=== PATIENT | female | born 1950 | race Caucasian/White ===

== ENCOUNTER → 2016-12-20 | Day surgery (SDC) | payer OTHER ==
--- NOTE | 2016-12-09 14:56 | PAT Medication Instructions ---
Service Date Dec 09, 2016. Current Home Medication List Atorvastatin (Atorvastatin Calcium), 40 MG PO HS Azelastine Hcl (Astelin Nasal [place]), 2 SPRAYS KENNA BID Canagliflozin (Invokana), 300 MG PO DAILY Cholecalciferol (Vitamin D3), 2,000 INTER.UNIT PO DAILY Cyanocobalamin (Vitamin B12), 1,000 MCG PO DAILY Fluocinonide (Fluocinonide), 1 DOSE TOP UD Fluticasone Propionate (Fluticasone Propionate), 1 SPRAY KENNA BID Furosemide (Furosemide), 20 MG PO DAILY Glimepiride (Glimepiride), 3 MG PO QAM Guaifenesin Ext Rel (Mucinex Ext Rel), 600 MG PO Q12 Lamotrigine (Lamotrigine), 225 MG PO DAILY Levothyroxine Sodium (Synthroid), 200 MCG PO UD Levothyroxine Sodium (Synthroid), 175 MCG PO UD Metformin Hcl (Glucophage), 1,000 MG PO BID Nystatin (Topical) (Nystatin), 1 DOSE TOP UD Pantoprazole (Pantoprazole Sodium), 40 MG PO BID Paroxetine (Paroxetine HCl), 40 MG PO DAILY Sotalol HCl (Sotalol HCl), 40 MG PO QPM Valsartan (Valsartan), 1 TAB PO DAILY Warfarin Sod (Jantoven), 5 MG PO DAILY Medication Instructions For Your Scheduled Surgery - Instructions to be given by [facility]; to bridge with Lovenox: Warfarin Sod (Jantoven), 5 MG PO DAILY - Hold the following medications 48 hours prior to surgery: Metformin Hcl (Glucophage), 1,000 MG PO BID - Hold the following medications 24 hours prior to surgery: Nystatin (Topical) (Nystatin), 1 DOSE TOP UD Fluocinonide (Fluocinonide), 1 DOSE TOP UD - Hold the following medications the morning of surgery: Canagliflozin (Invokana), 300 MG PO DAILY Cholecalciferol (Vitamin D3), 2,000 INTER.UNIT PO DAILY Cyanocobalamin (Vitamin B12), 1,000 MCG PO DAILY Guaifenesin Ext Rel (Mucinex Ext Rel), 600 MG PO Q12 Furosemide (Furosemide), 20 MG PO DAILY Glimepiride (Glimepiride), 3 MG PO QAM Valsartan (Valsartan), 1 TAB PO DAILY - Take the following medications the morning of surgery with a sip of water OTHERWISE NOTHING TO EAT OR DRINK AFTER MIDNIGHT: Azelastine Hcl (Astelin Nasal [place]), 2 SPRAYS KENNA BID Fluticasone Propionate (Fluticasone Propionate), 1 SPRAY KENNA BID Paroxetine (Paroxetine HCl), 40 MG PO DAILY Levothyroxine Sodium (Synthroid) Pantoprazole (Pantoprazole Sodium), 40 MG PO BID - Take the following medications as scheduled the night before surgery: Atorvastatin (Atorvastatin Calcium), 40 MG PO HS Azelastine Hcl (Astelin Nasal [place]), 2 SPRAYS KENNA BID Fluticasone Propionate (Fluticasone Propionate), 1 SPRAY KENNA BID Lamotrigine (Lamotrigine), 225 MG PO DAILY HS Sotalol HCl (Sotalol HCl), 40 MG PO QPM Pantoprazole (Pantoprazole Sodium), 40 MG PO BID If you have any questions please call us at [phone] or [phone] or [phone]
[2016-12-09 15:11] LABS: BASO % 0.3 %; BASO ABS # 0.02 K/uL (0-0.2); COMPLETE YES; HEMATOCRIT 42.9 % (37-47); IG% 0.4 %; LYMPH % 29.5 %; LYMPH ABS # 2.12 K/uL (1.2-3.4); MEAN CELL VOLUME 85.3 fL (80-100); MEAN CORPUSCULAR HEMOGLOBIN 27.4 pg (25-34); MEAN CORPUSCULAR HGB CONC 32.2 g/dl (32-36); MEAN PLATELET VOLUME 10.3 fL (7.4-10.4); MONO % 6.7 %; NEUT % 59.1 %; PLATELET COUNT 260 K/uL (130-400); RED BLOOD COUNT 5.03 M/uL (4.2-5.4); WHITE BLOOD COUNT 7.18 K/uL (4.8-10.8)
[2016-12-09 15:51] LABS: BLOOD UREA NITROGEN 18 mg/dl (7-18); BUN/CREATININE RATIO 21.3 (10-20); CARBON DIOXIDE 27 mmol/L (21-32); CHLORIDE 104 mmol/L (98-107); CREATININE 0.83 mg/dl (0.60-1.20); GLUCOSE 267 mg/dl (70-99); POTASSIUM 3.9 mmol/L (3.5-5.1); SODIUM 142 mmol/L (136-145)
[2016-12-10 08:43] VITALS: BMI 44.0
[~2016-12-20] VITALS: Ht 172.7 cm; Wt 130.0 kg
[~2016-12-20] MED LIST: AMR2 PO; ASPCH81X PO; ASTN NAE; ATROPINE SULFATE 0.1 MG/ML 5ML SYR IV PRN; BTP80 PO; CANA1TAB3 PO; CHOL2000 PO; CYAN100020 PO; DEXAMETHASONE SOD INJ 4 MG/ML VIAL ONE; DVN/160 PO; ENOX40IN SQ; EpHEDrine SULFATE INJ 50 MG/ML AMP IV PRN; FENTANYL CITRATE INJ 50 MCG/1 ML 2 ML VIAL IV PRN; FENTANYL CITRATE INJ 50 MCG/1 ML 2 ML VIAL ONE; FLNIN/ NAE; FLUO0.059 TOP; GUAI1TAB55 PO; HYDROCODONE/ACETAMOPHEN 5/325MG TAB PO PRN; HYDROmorphone INJ 1 MG/ML SYR IV PRN; IBUPROFEN 600 MG TAB PO PRN; KETOROLAC TROMETHAMINE 30 MG/ML VIAL IV. PRN; LACTATED RINGER'S 1000ML 1,000 ML IV SCH; LEVO175T PO; LEVO200T PO; LIDOCAINE HCL 2% 2 ML VIAL (20MG/ML) ONE; LMC25 PO; LPT40 PO; LSX20 PO; METF-384 PO; METOCLOPRAMIDE HCL INJ 5 MG/ML 2 ML VIAL IV PRN; MIDAZOLAM HCL 1 MG/ML 2ML VIAL ONE; MTR600X PO; NYST1POW7 TOP; OLAN-111 PO; ONDANSETRON INJ 2 MG/ML 2 ML VIAL IV PRN; ONDANSETRON INJ 2 MG/ML 2 ML VIAL ONE; OXYC-57 PO; OXYCODONE/ACETAMINOPHEN 5-325 TAB PO PRN; PROMETHAZINE HCL INJ 6.25 MG in SODIUM CHLORIDE 0.9% 50ML 50 ML IV PRN; PROPOFOL IV EMULSION 10 MG/ML 20 ML VIAL IV ONE; PRT/40 PO; PRX/40 PO; SODIUM CHLORIDE 0.9% 1000ML 1,000 ML IV SCH; VALS-59 PO; WARF5TAB7 PO
[2016-12-20 09:03] VITALS: BP 176/81; PULSE 71; TEMP 37; O2SAT 96; Ht 172.7 cm; Wt 130.0 kg
--- NOTE | 2016-12-20 09:35 | History & Physical Bridge Note ---
H&P Re-Evaluation Bridge Note: I have examined the patient, reviewed the History & Physical and in the interval since the performance of the History & Physical I have noted the following changes of clinical significance: No changes noted
[2016-12-20 10:18] LABS: INR 1.1 (0.9-1.1); PROTHROMBIN TIME (PATIENT) 11.3 SECONDS (9.0-12.0)
--- NOTE | 2016-12-20 11:30 | Discharge Instructions ---
Discharge Instructions Admission Reason for Admission: Postmenopausal Bleeding Discharge Discharge Diagnosis / Problem: post op D& C Hysteroscopy Discharge Goals Goal(s): Routine recovery after surgery Activity Recommendations Activity Limitations: as noted below Lifting Limitations: gradually increase as tolerated ACTIVITY RECOMMENDATIONS: * Avoid tampons, douching, hot tubs, pools, and intercourse until bleeding has stopped. * May shower as usual. * No strenuous activity for 24-48 hours. After 24-48 hours, you can do anything you feel like doing (driving and sports are okay). RETURN TO SCHOOL/WORK: * You may return to school or work after 24 hours unless specified by your physician. DIET: * Resume previous diet. MEDICATIONS: Resume previous medications unless instructed otherwise by your surgeon. Ibuprofen 200mg 2-3 tablets every 4-6 hours as needed --OR-- Aleve 2 tablets every 8-12 hours as needed for post-operative discomfort Medications are over the counter. Tylenol may be used if above medications are contraindicated or not preferred. Medication should be taken with food or milk. do not take on an empty stomach. SPECIAL CARE INSTRUCTIONS: * Check temperature twice daily for one week. Report any elevation over 101 degrees. * Call office if you experience increased pelvic pain or discomfort not relieved by pain medicine, if you have foul smelling vaginal discharge, if you have bleeding that is heavier than a normal menstrual flow. If you are changing a maxi pad every 1- 2 hours, this is too heavy. vaginal spotting is normal for 1-2 weeks. FOLLOW UP VISIT: Call your doctor's office for a post-operative visit. . Current Hospital Diet Patient's current hospital diet: Discharge Diet Recommended Diet: Regular Diet Procedures Procedures Performed: Exam Under Anesthesia, Hysteroscopy Dilation Currettage, Endometerial Polyp Resection with use of Myosure Pending Studies Studies pending at discharge: no Medical Emergencies . Who to Call and When: Medical Emergencies: If at any time you feel your situation is an emergency, please call 911 immediately. . Non-Emergent Contact Non-Emergency issues call your: Specialist . . "Provider Documentation" section prepared by Gordon Cuenca. VTE Core Measure Inpt VTE Proph given/why not?: Treatment not indicated
--- NOTE | 2016-12-20 11:31 | [facility] Post Operative Brief Note ---
Immediate Operative Summary Operative Date Dec 20, 2016. Pre-Operative Diagnosis Post Menopausal Bleeding Post-Operative Diagnosis Endometerial Polyp Procedure(s) Performed Exam Under Anesthesia, Hysteroscopy Dilation Currettage, Endometerial Polyp Resection with use of Myosure Surgeon Headwaitress Surgeon(s) None Estimated Blood Loss 20ml Findings dictated Specimens A. Endometrial Polyp Resection B. Endometrial Currettings. Drains none Anesthesia general Complication(s) None Disposition Recovery Room / PACU
--- NOTE | 2016-12-20 12:10 | OPERATIVE REPORT ---
DATE OF OPERATION: 12/20/2016 INDICATIONS FOR SURGERY: This is a 66-year-old with postmenopausal bleeding. An attempt to do an endometrial biopsy in the office was unsuccessful because of cervical stenosis. Ultrasound showed endometrial polyp. PREOPERATIVE DIAGNOSES: 1. Postmenopausal bleeding. 2. Cervical stenosis. 3. Endometrial polyp seen on pelvic sonogram. POSTOPERATIVE DIAGNOSIS: Same. PROCEDURE: 1. Examination under anesthesia. 2. Hysteroscopy. 3. Dilation and curettage. 4. Endometrial polyp resection via MyoSure. SURGEON: Dr. Cuenca. INDUSTRIAL RELATIONS REPRESENTATIVE: None. ANESTHESIA: General. FINDINGS: A normal atrophic vaginal vulva. Cervix appeared stenotic. Findings of the uterus showed endometrial polyp with anterior fibroid. Both ostia were seen. Rest of the endometrium appeared otherwise atrophic. ESTIMATED BLOOD LOSS: 20 mL. IV FLUIDS: 950 mL. URINE OUTPUT: 100 mL clear urine at the beginning of the procedure. HYSTEROSCOPY FLUID LOSS: 45 mL. COMPLICATIONS: None. DRAINS: None. PATHOLOGY: 1. Endometrial polyp resection via MyoSure. 2. Endometrial curettings. DISPOSITION: Stable in recovery room. PROCEDURE: The patient was taken to the operating room where timeout was called. She was prepped and draped in normal sterile fashion in the dorsal lithotomy position. The bladder was catheterized and 100 mL of clear urine was obtained. A weighted speculum was placed in the vagina. A single tooth tenaculum was placed on the cervix. Cervix was dilated to a size 8. MyoSure hysteroscope was placed into the uterine cavity and the findings of the uterus are as dictated above. The MyoSure was passed through the outflow tract and resection of endometrial polyp performed without any difficulty. There was good hemostasis at the end of the procedure. The MyoSure device was removed from the uterus. The cervix dilated to a size 10 and size 2 curette introduced in the uterine cavity and curettage performed in all 4 quadrants until a gritty texture was obtained. The specimens were sent to pathology for pathological analysis. All instruments were removed from the vagina including sponges and retractors and accounted for x2. There is good hemostasis and the patient sent to recovery in stable condition. I attest to the content of the Intraoperative Record and any orders documented therein. Any exceptions are noted below. CLAUDE
--- NOTE | 2016-12-20 12:28 | Anesthesiology Progress Note ---
Anesthesia Post Op Note Date & Time Dec 20, 2016 at 12:28 Vital Signs Pain Intensity: 0 Vital Signs Past 12 Hours Date Time Temp Pulse Resp B/P Pulse Ox O2 Delivery O2 Flow Rate FiO2 12/20/16 12:23 77 15 12/20/16 12:23 79 15 94 12/20/16 12:21 140/70 12/20/16 12:21 36.4 12/20/16 12:18 77 20 12/20/16 12:18 77 20 96 12/20/16 12:15 156/71 12/20/16 12:13 72 16 96 12/20/16 12:13 74 16 12/20/16 12:10 139/70 12/20/16 12:08 69 14 12/20/16 12:08 70 14 97 12/20/16 12:07 73 23 12/20/16 12:07 75 23 96 12/20/16 12:06 146/69 12/20/16 12:02 75 16 12/20/16 12:02 76 16 93 12/20/16 12:00 147/71 12/20/16 11:57 72 14 88 12/20/16 11:57 74 14 12/20/16 11:56 74 21 137/64 93 12/20/16 11:56 75 21 12/20/16 11:51 80 16 12/20/16 11:51 80 16 96 12/20/16 11:50 166/83 12/20/16 11:46 73 16 12/20/16 11:46 73 16 95 12/20/16 11:45 150/90 12/20/16 11:41 72 16 98 12/20/16 11:41 72 16 12/20/16 11:40 72 13 148/70 98 12/20/16 11:40 72 13 12/20/16 11:35 73 15 176/84 99 12/20/16 11:35 74 15 12/20/16 11:30 76 12 12/20/16 11:30 77 12 169/94 99 12/20/16 11:25 80 14 193/91 99 12/20/16 11:25 36.6 87 16 169/94 98 Mask 10 12/20/16 11:25 80 14 12/20/16 09:03 37 71 20 176/81 96 Room Air Notes Mental Status: alert / awake / arousable, participated in evaluation Pt Amnestic to Procedure: Yes Nausea / Vomiting: adequately controlled Pain: adequately controlled Airway Patency, RR, SpO2: stable & adequate BP & HR: stable & adequate Hydration State: stable & adequate Anesthetic Complications: no major complications apparent
[2016-12-20 12:35] VITALS: BP 160/66; PULSE 79; TEMP 37; O2SAT 97
[2016-12-20 13:05] VITALS: BP 150/65; PULSE 84; O2SAT 98
[2016-12-20 13:35] VITALS: BP 137/77; PULSE 89; TEMP 36.6; O2SAT 97
== END | disposition home or self-care (01) ==
LOC: C.ACU 08:52
PROVIDERS: ATTEND Obstetrics & Gynecology
DX: C54.1 Malignant neoplasm of endometrium (principal); N95.0 Postmenopausal bleeding; N88.2 Stricture and stenosis of cervix uteri; F32.9 Major depressive disorder, single episode, unspecified; E11.9 Type 2 diabetes mellitus without complications; M79.7 Fibromyalgia; I10 Essential (primary) hypertension; E78.5 Hyperlipidemia, unspecified; E03.9 Hypothyroidism, unspecified; Z86.73 Personal history of transient ischemic attack (TIA), and cerebral infarction without residual deficits

== ENCOUNTER 2017-03-25 07:52 | Day surgery (SDC) | payer OTHER ==
[2017-03-24 18:32] VITALS: BMI 45.0
[~2017-03-25] VITALS: Ht 167.6 cm; Wt 125.6 kg
[~2017-03-25 07:52] MED LIST changes: -ASPCH81X PO; -ATROPINE SULFATE 0.1 MG/ML 5ML SYR IV PRN; -DEXAMETHASONE SOD INJ 4 MG/ML VIAL ONE; -DVN/160 PO; -ENOX40IN SQ; -EpHEDrine SULFATE INJ 50 MG/ML AMP IV PRN; -FENTANYL CITRATE INJ 50 MCG/1 ML 2 ML VIAL IV PRN; -FENTANYL CITRATE INJ 50 MCG/1 ML 2 ML VIAL ONE; -HYDROCODONE/ACETAMOPHEN 5/325MG TAB PO PRN; -HYDROmorphone INJ 1 MG/ML SYR IV PRN; -IBUPROFEN 600 MG TAB PO PRN; -KETOROLAC TROMETHAMINE 30 MG/ML VIAL IV. PRN; +LACTATED RINGER'S 1000ML 500 ML IV ONE; -LIDOCAINE HCL 2% 2 ML VIAL (20MG/ML) ONE; -METOCLOPRAMIDE HCL INJ 5 MG/ML 2 ML VIAL IV PRN; -MIDAZOLAM HCL 1 MG/ML 2ML VIAL ONE; -NYST1POW7 TOP; -ONDANSETRON INJ 2 MG/ML 2 ML VIAL IV PRN; -ONDANSETRON INJ 2 MG/ML 2 ML VIAL ONE; -OXYC-57 PO; -OXYCODONE/ACETAMINOPHEN 5-325 TAB PO PRN; +PANT40TA2 PO; -PROMETHAZINE HCL INJ 6.25 MG in SODIUM CHLORIDE 0.9% 50ML 50 ML IV PRN; -PROPOFOL IV EMULSION 10 MG/ML 20 ML VIAL IV ONE; -PRT/40 PO; -SODIUM CHLORIDE 0.9% 1000ML 1,000 ML IV SCH
[2017-03-25 08:16] LABS: BASO % 0.4 %; BASO ABS # 0.04 K/uL (0-0.2); HEMATOCRIT 40.5 % (37-47); IG% 0.7 %; LYMPH % 26.2 %; LYMPH ABS # 2.46 K/uL (1.2-3.4); MEAN CELL VOLUME 86.4 fL (80-100); MEAN CORPUSCULAR HEMOGLOBIN 27.9 pg (25-34); MEAN PLATELET VOLUME 9.9 fL (7.4-10.4); MONO % 5.8 %; NEUT % 62.9 %; PLATELET COUNT 302 K/uL (130-400); RED BLOOD COUNT 4.69 M/uL (4.2-5.4); WHITE BLOOD COUNT 9.39 K/uL (4.8-10.8)
[2017-03-25] MEDS ORDERED: ASPCH81X PO (08:16)
[2017-03-25] MEDS ORDERED: DVN/160 PO (08:17)
[2017-03-25 08:18] VITALS: BP 142/65; PULSE 72; TEMP 37.1; O2SAT 96; Ht 167.6 cm; Wt 125.6 kg
[2017-03-25 08:24] LABS: INR 1.1 (0.9-1.1); PROTHROMBIN TIME (PATIENT) 11.5 SECONDS (9.0-12.0)
[2017-03-25 08:26] LABS: COMPLETE YES; MEAN CORPUSCULAR HGB CONC 32.3 g/dl (32-36)
[2017-03-25] MEDS ORDERED: CEFAZOLIN IV 3,000 MG/65 ML D5W IV ONE (08:37)
[2017-03-25] MEDS ORDERED: ATROPINE SULFATE 0.1 MG/ML 5ML SYR IV PRN (09:30)
[2017-03-25] MEDS ORDERED: ONDANSETRON INJ 2 MG/ML 2 ML VIAL IV PRN ×2 (09:30→12:15)
[2017-03-25] MEDS ORDERED: EpHEDrine SULFATE INJ 50 MG/ML AMP IV PRN (09:30)
[2017-03-25] MEDS ORDERED: FENTANYL CITRATE INJ 50 MCG/1 ML 2 ML VIAL IV PRN (09:30)
[2017-03-25] MEDS ORDERED: CEFAZOLIN 3000 MG/65 ML D5W IV STA (09:34)
[2017-03-25] MEDS ORDERED: KETAMINE HCL INJ 50 MG/ML 10 ML VIAL ONE (10:18)
[2017-03-25] MEDS ORDERED: MIDAZOLAM HCL 1 MG/ML 2ML VIAL ONE ×2 (10:18→11:06)
[2017-03-25] MEDS ORDERED: CEFAZOLIN IV 3,000 MG/65 ML D5W IV STA (10:31)
[2017-03-25] MEDS ORDERED: LIDOCAINE HCL 1% 20 ML VIAL ONE (10:51)
[2017-03-25] MEDS ORDERED: BACITRACIN OINT 15 GM TUBE ONE (10:52)
[2017-03-25] MEDS ORDERED: BUPIVACAINE 0.5 % 5 MG/1 ML MPF 30ML VIAL ONE (10:53)
[2017-03-25] MEDS ORDERED: HEPARIN SOD (PORCINE) 1000 UNIT/ML 10 ML VIAL ONE (10:53)
[2017-03-25] MEDS ORDERED: FENTANYL CITRATE INJ 50 MCG/1 ML 2 ML VIAL ONE (11:28)
[2017-03-25] MEDS ORDERED: PROPOFOL IV EMULSION 10 MG/ML 20 ML VIAL IV ONE (11:36)
[2017-03-25] MEDS ORDERED: CONRAY 60% 50 ML VIAL ONE (11:36)
[2017-03-25] MEDS ORDERED: ONDANSETRON INJ 2 MG/ML 2 ML VIAL ONE (11:45)
[2017-03-25] MEDS ORDERED: LIDOCAINE HCL 2% 2 ML VIAL (20MG/ML) ONE (12:02)
--- NOTE | 2017-03-25 12:11 | [facility] Post Operative Brief Note ---
Immediate Operative Summary Operative Date Mar 25, 2017. Pre-Operative Diagnosis Need for Intravenous Access Post-Operative Diagnosis Need for Intravenous Access Procedure(s) Performed Insertion of A-port in Right Subclavian Vein Surgeon Dr. Armin Mckeon Vending Technician Surgeon(s) Suzanne Chirinos PA-C Estimated Blood Loss 10ml Findings IV contrast study , possible occlusion SVC, patent Right Subclavain vein Specimens No Specimen Drains none Anesthesia sedation + local Complication(s) None Disposition Recovery Room / PACU
[2017-03-25] MEDS ORDERED: MoRPHine SULFATE 2 MG/ML CARP IV PRN ×2 (12:15)
[2017-03-25] MEDS ORDERED: OXYCODONE/ACETAMINOPHEN 5-325 TAB PO PRN (12:15)
[2017-03-25] MEDS ORDERED: OXYC-57 PO (12:16)
--- NOTE | 2017-03-25 12:20 | Discharge Instructions ---
Discharge Instructions Date of Service Mar 25, 2017. Admission Reason for Admission: Uterine Cancer Discharge Discharge Diagnosis / Problem: s/p aport insertion Discharge Goals Goal(s): Decrease discomfort Activity Recommendations Activity Limitations: as noted below No strenuous activity for 1 week No heavy lifting with right arm for 1 week Do not lift right arm above head for 1 week NO driving while taking narcotic pain medication . Instructions / Follow-Up Instructions / Follow-Up You may shower in 3 days, sponge bath and wash hair in meantime Remove dressing in 3 days Keep steri strips on for 7 days unless your port is needed to be used, if they fall off before 7 days that is okay Follow-up with Dr. Mckeon in 1 week, please call office at [phone] to make an appointment if you do not already have one Current Hospital Diet Patient's current hospital diet: Discharge Diet Recommended Diet: Regular Diet Procedures Procedures Performed: Insertion of A-port in Right Subclavian Vein Pending Studies Studies pending at discharge: no Medical Emergencies . Who to Call and When: Medical Emergencies: If at any time you feel your situation is an emergency, please call 911 immediately. . Non-Emergent Contact Non-Emergency issues call your: Primary Care Provider, Surgeon Call Non-Emergent contact if: you have a fever, temperature is above 101.5, your pain is not controlled, your pain is worsening, wound has increased drainage, wound has increased redness, wound has increased pain . "Provider Documentation" section prepared by Suzanne Dowd. . VTE Core Measure Inpt VTE Proph given/why not?: SCD's [place] Drug Monitoring Program Search Results: patient reviewed within database, no issues identified
--- NOTE | 2017-03-25 12:37 | DIAGNOSTIC IMAGING REPORT ---
CHEST ONE VIEW PORTABLE CLINICAL HISTORY: s/p right subclavian a port catheter tube position COMPARISON STUDY: 03/21/2014 FINDINGS: Central catheter place in superior vena cava. No evidence pneumothorax. Lungs remain clear. IMPRESSION: Central catheter placed in the superior vena cava. No evidence pneumothorax. Electronically signed by: Derian Whyte M.D. 03/25/2017 12:36 PM Dictated Date/Time: 03/25/2017 12:35 PM
[2017-03-25 12:45] VITALS: BP 137/68; PULSE 72; TEMP 36.7; O2SAT 95
[2017-03-25 13:15] VITALS: BP 113/54; PULSE 70; TEMP 36.7; O2SAT 93
--- NOTE | 2017-03-25 13:25 | Anesthesiology Progress Note ---
Anesthesia Post Op Note Date & Time Mar 25, 2017 at 13:25 Vital Signs Pain Intensity: 0 Vital Signs Past 12 Hours Date Time Temp Pulse Resp B/P (MAP) Pulse Ox O2 Delivery O2 Flow Rate FiO2 03/25/17 12:45 36.7 72 20 137/68 95 Room Air 03/25/17 12:30 36.4 73 16 127/65 93 Room Air 03/25/17 12:20 70 12 124/65 99 Mask 8 03/25/17 12:14 36.2 72 16 132/71 95 Mask 8 03/25/17 08:18 37.1 72 18 142/65 (90) 96 Room Air Notes Mental Status: alert / awake / arousable, participated in evaluation Pt Amnestic to Procedure: Yes Nausea / Vomiting: adequately controlled Pain: adequately controlled Airway Patency, RR, SpO2: stable & adequate BP & HR: stable & adequate Hydration State: stable & adequate Anesthetic Complications: no major complications apparent
--- NOTE | 2017-03-25 15:44 | OPERATIVE REPORT ---
DATE OF OPERATION: 03/25/2017 PREOPERATIVE DIAGNOSES: Need [id number] insertion for chemo. POSTOPERATIVE DIAGNOSIS: Same. PROCEDURE: [id number] insertion of right subclavian vein. SURGEON: Dr. Armin Mckeon. VEGETABLE PREPARER: Suzanne Dowd PA-C. ANESTHESIA: Conscious sedation plus local. ESTIMATED BLOOD LOSS: About 10 mL. IV FLUIDS: 1500 mL. FINDINGS: Intravenous contrast study showing possible occlusion of the SVC and patent right subclavian vein to the SVC. COMPLICATIONS: None. INDICATIONS FOR THE PROCEDURE: This is a 66-year-old female who will require A-port insertion for chemo treatment of cancer. I did talk to the patient about the benefit and risk, alternate procedure. I indicated the risks may include but not limited such as bleeding, infection, injury to vessel or nerves, blood clot cause DVT, pulmonary emboli, injury to bowel, may need chest tube, dysfunction catheter even . The patient understands. She signed informed consent and she agreed to proceed with procedure. I answered all questions. OPERATION AND FINDINGS: DETAILS OF PROCEDURE: We brought the patient to the OR, put the patient in the supine position. The patient received SCD on bilateral legs to prevent DVT. Also, the patient received 2 grams Ancef IV for prophylactic antibiotic. The patient received conscious sedation by anesthesiology. Then I used ultrasound per marked right inguinal trocar vein. Then the patient right side neck and upper chest was prepped and draped in the routine sterile fashion. After a timeout, I used needle to puncture the right internal jugular vein and ultrasound got easy blood return; however, we tried to pass the wire into the SVC, we could not, the wire go to right subclavian vein so we tried a couple times. At this moment we decided to shoot some of the contrast dye and contrast dye only go up to the right internal jugular and not go to SVC and possible occluded SVC between the right internal jugular vein. At this moment, I decided I used the right subclavian vein, so I used the 16 gauge needle puncture the right subclavian vein without difficulty and passed to the wire and used the x-ray and found the wire go to the right atrial, then we injected the local around the right upper chest, made about a 2 cm incision create port pouch and then I passed the dilator catheter through the wire without difficulty and then I passed the [id number] through the dilator sheath, removed sheath and then we used fluoro to locate the catheter tip located junction SVC to atrial, good location, and then the catheter connected to the port. Once connected to port we used 2-0 Prolene to fix the port on the chest wall at three points and then we closed the subcutaneous layer by using 2-0 Vicryl continuous running, closed skin by using 4-0 Vicryl. Then I used needle to puncture the port and easy blood returned and injection heparin saline into the port. The patient positioned Trendelenburg during the procedure. Otherwise, the patient tolerated the procedure well. All instrument, needle and sponge count correct x2 at the end of case. The patient transferred to recovery room in stable condition. After the procedure, I did talk to the patient and her about the OR finding and procedure we did, they understand. I attest to the content of the Intraoperative Record and any orders documented therein. Any exceptions are noted below. CLAUDE
== END 2017-03-25 13:30 | disposition home or self-care (01) ==
LOC: C.ACU 07:52
PROVIDERS: ATTEND Surgery
DX: C54.1 Malignant neoplasm of endometrium (principal); I10 Essential (primary) hypertension; I48.91 Unspecified atrial fibrillation; E03.9 Hypothyroidism, unspecified; E11.9 Type 2 diabetes mellitus without complications; E78.5 Hyperlipidemia, unspecified; F41.9 Anxiety disorder, unspecified; F32.9 Major depressive disorder, single episode, unspecified; G47.33 Obstructive sleep apnea (adult) (pediatric); K21.9 Gastro-esophageal reflux disease without esophagitis; E66.01 Morbid (severe) obesity due to excess calories; Z68.41 Body mass index [BMI] 40.0-44.9, adult; Z79.01 Long term (current) use of anticoagulants; Z98.49 Cataract extraction status, unspecified eye; Z90.710 Acquired absence of both cervix and uterus; Z90.89 Acquired absence of other organs; Z86.73 Personal history of transient ischemic attack (TIA), and cerebral infarction without residual deficits; Z98.890 Other specified postprocedural states

== ENCOUNTER 2018-02-27 13:12 | Observation (INO) | payer OTHER ==
[~2018-02-27] VITALS: Ht 171.4 cm; Wt 134.8 kg
[~2018-02-27 13:12] MED LIST changes: +ASPCH81X PO; +DVN/160 PO; -LACTATED RINGER'S 1000ML 1,000 ML IV SCH; -LACTATED RINGER'S 1000ML 500 ML IV ONE; -VALS-59 PO
[2018-02-27 14:41] VITALS: BP 163/79; PULSE 77; TEMP 37; O2SAT 94; Ht 171.4 cm; Wt 134.8 kg
[2018-02-27 15:16] VITALS: BP 145/83; PULSE 65; TEMP 37.4; O2SAT 91
[2018-02-27] MEDS ORDERED: ENOXAPARIN 40 MG/0.4 ML SYR SQ SCH (16:15)
[2018-02-27] MEDS ORDERED: IBUPROFEN 600 MG TAB PO PRN (16:15)
[2018-02-27] MEDS ORDERED: KETOROLAC TROMETHAMINE 30 MG/ML VIAL IV STA (16:17)
[2018-02-27] MEDS ORDERED: IV FLUIDS COMPLETED PRN (16:30)
[2018-02-27] MEDS ORDERED: KETOROLAC TROMETHAMINE 15 MG/ML VIAL IV PRN (16:30)
--- NOTE | 2018-02-27 16:40 | History and Physical ---
History & Physical Date & Time of Service: February 27, 2018 at 16:27 Chief Complaint: Cellulitis-Facial Primary Care Physician: Kaylah Phillips M.D. History of Present Illness Source: patient She is a 67-year-old white female with significant past medical history as mentioned below apparently was seen in the clinic on Friday last with them left fascial redness. She was given Valtrex with the suspicion of shingles but the condition did not improve. Her redness and swelling involved the right side of the face as well and she was seen in the clinic again with a diagnosis of cellulitis/splitting erysipelas and ascending for continued treatment. She complains to have pain bilaterally face and also at the occipital area of the head. She has a fever up to 100F as an outpatient. She denies of any other symptoms. She received 2 g of ceftriaxone IM at the clinic and her redness and swelling have been improving. Past Medical/Surgical History Medical Problems: (1) AF (atrial fibrillation) (2) Appendectomy (3) Atrial ablation (4) Bronchitis (5) section (6) Diabetes mellitus (7) Diffuse cellulitis of face (8) DM (diabetes mellitus), type 2, uncontrolled (9) Fibromyalgia (10) Heart disease (11) HTN (hypertension) (12) Lumpectomy of breast (13) New onset atrial fibrillation (14) New onset atrial fibrillation (15) Rash (16) Sleep apnea (17) Tonsillectomy Social History Smoking Status: Never Smoker Smokeless Tobacco Use: No Drug Use: none Marital Status: Occupational Status: unemployed Allergies Coded Allergies: Pentazocine (Verified Allergy, Severe, cardiac arrest, 03/25/17) Flecainide (Verified Allergy, Unknown, severe hypotension, 03/25/17) Nitroglycerin (Verified Allergy, Unknown, cardiac arrest, 03/25/17) Pregabalin (Verified Allergy, Unknown, swelling face,feet,and hands, ) Aspartame (Verified Adverse Reaction, Intermediate, BAD HEADACHES, 03/25/17) Home Medications Scheduled Aspirin (Aspirin Chewable), 81 MG PO DAILY Atorvastatin (Lipitor), 40 MG PO HS Azelastine Hcl (Astelin Nasal [place]), 2 SPRAYS KENNA BID Cyanocobalamin (Vitamin B12), 1,000 MCG PO DAILY Fluocinonide (Fluocinonide), 1 DOSE TOP UD Fluticasone Propionate (Fluticasone Propionate), 1 SPRAY KENNA BID Furosemide (Furosemide), 20 MG PO DAILY Guaifenesin Ext Rel (Mucinex Ext Rel), 600 MG PO Q12 Insulin Aspart (Novolog), 11 UNITS SQ DAILY Insulin Aspart (Novolog), 14 UNITS SQ PM Insulin Glargine (Lantus), 45 UNITS SC HS Lamotrigine (Lamotrigine), 250 MG PO HS Levothyroxine Sodium (Synthroid), 200 MCG PO UD Levothyroxine Sodium (Synthroid), 175 MCG PO UD Metformin Hcl (Glucophage), 850 MG PO TID Olanzapine (Zyprexa), 5 MG PO HS Pantoprazole (Pantoprazole Sodium), 40 MG PO BID Paroxetine (Paroxetine HCl), 50 MG PO DAILY Sotalol HCl (Sotalol HCl), 40 MG PO BID Valsartan (Diovan), 1 TAB PO DAILY Warfarin Sod (Jantoven), 7.5 MG PO DAILY Review of Systems Constitutional: + fever, + chills Eyes: + redness (lEFT SIDE) Musculoskeletal: + muscle pain (HAS fIBROMYALGIA) Integumentary: + rash (BILATERALLY OVER FACE WITH REDNESS) Physical Exam Vital Signs Date Time Temp Pulse Resp B/P (MAP) Pulse Ox O2 Delivery O2 Flow Rate FiO2 02/27/18 15:16 37.4 65 16 145/83 (103) 91 Room Air 02/27/18 14:41 37.0 77 18 163/79 94 Room Air General Appearance: + mild distress (From facial pain) Head: normocephalic Eyes: + pertinent finding (Minimal Left scleral redness with minimal drainage) ENT: normal ENT inspection Neck: supple, no adenopathy Respiratory/Chest: chest non-tender, lungs clear, normal breath sounds Cardiovascular: regular rate, rhythm, no edema Abdomen/GI: normal bowel sounds, non tender, soft Back: normal inspection Extremities/Musculoskelatal: normal inspection, no pedal edema (May be trace) Neurologic/Psych: no motor/sensory deficits Skin: normal color Lymphatic: no adenopathy Diagnostics Laboratory Results Results Past 24 Hours Test 02/27/18 16:15 Range/Units Diagnostic Radiology CBC,COMP.Mag -pending Impression Assessment and Plan SPREADING CELLULITIS OF FACE Started one left side and then involve the right side as well over the upper part Received 2 g of ceftriaxone in the clinic and the condition has been improving We will continue with IV ceftriaxone for now Transition to oral Keflex Likely to go home tomorrow Diabetes type 2 on Insulin We will continue Insulin and hold metformin Sliding scale Insulin coverage while in the hospital FIBROMYALGIA Continue current antidepressant medication Pain medications with IV Toradol ATRIAL FIBRILLATION Has been on Coumadin Rate is controlled without any symptoms Continue current medications HYPERTENSION BP is controlled ,continue current medications DVT prophylaxis Continue Coumadin Monitor INR CODE STATUS; full In my clinical assessment the beneficially meets criteria as per CMS for 2 midnight stay in the hospital Advanced Directives Existing Living Will: No Existing Power of Senior Account Manager: No Resuscitation Status VTE Prophylaxis Will order VTE Prophylaxis: Yes
[2018-02-27 16:47] LABS: MEAN CELL VOLUME 87.1 fL (80-100); MEAN CORPUSCULAR HGB CONC 33.3 g/dl (32-36); MEAN PLATELET VOLUME 9.3 fL (7.4-10.4); PLATELET COUNT 139 K/uL (130-400); RED CELL DISTRIBUTION WIDTH CV 16.2 % (11.5-14.5); RED CELL DISTRIBUTION WIDTH SD 51.4 fL (36.4-46.3)
[2018-02-27] MEDS ORDERED: KETOROLAC TROMETHAMINE 30 MG/ML VIAL ONE (17:01)
[2018-02-27 17:12] LABS: ALBUMIN 3.6 gm/dl (3.4-5.0); CALCIUM 8.7 mg/dl (8.5-10.1); CREATININE 0.82 mg/dl (0.60-1.20)
[2018-02-27] MEDS ORDERED: NVLG SQ ×2 (17:42)
[2018-02-27] MEDS ORDERED: INSDGI SC (17:42)
[2018-02-27] MEDS ORDERED: NURSING VERBAL MED ORDER ONE (18:45)
[2018-02-27] MEDS: CEFTRIAXONE SOD INJ 2,000 MG in DEXTROSE 5% 50ML 50 ML IV SCH (19:03)
[2018-02-27 19:22] LABS: INR 3.1 (0.9-1.1)
[2018-02-27] MEDS ORDERED: SOTALOL HCL 80 MG TAB PO SCH (21:00)
[2018-02-27] MEDS: FLUTICASONE PROPIONATE NA SPR 16 GM BTL NAE SCH (21:02)
[2018-02-27] MEDS: ATORVASTATIN 40 MG TAB PO SCH (21:03)
[2018-02-27] MEDS: PANTOprazole SOD 40 MG TAB PO SCH (21:04)
[2018-02-27] MEDS: GUAIFENESIN 600 MG TABCR PO SCH (21:04)
[2018-02-27] MEDS: OLANZAPINE 5 MG TAB PO SCH (21:05)
[2018-02-27] MEDS ORDERED: GLUCOSE 40% GEL 15 GM TUBE PO PRN (21:30)
[2018-02-27] MEDS ORDERED: CARBOHYDRATES FOR HYPOGLYCEMIA PO PRN (21:30)
[2018-02-27] MEDS ORDERED: GLUCOSE 10 TABS/TUBE PO PRN (21:30)
[2018-02-27] MEDS ORDERED: DEXTROSE 50% 50 ML SYR IV PRN (21:30)
[2018-02-27] MEDS ORDERED: GLUCAGON FOR INJ 1 MG VIAL IM PRN (21:30)
[2018-02-27] MEDS: INSULIN GLARGINE SOLOSTAR 100 UNITS/ML 3 ML PEN SC SCH (21:59)
[2018-02-27 22:52] VITALS: BP 139/67; PULSE 62; TEMP 36.9; O2SAT 93
[2018-02-28] MEDS: LEVOTHYROXINE 200 MCG TAB PO SCH (05:39)
[2018-02-28 06:44] LABS: INR 3.2 (0.9-1.1)
[2018-02-28 07:32] VITALS: BP 134/69; PULSE 54; TEMP 36.6; O2SAT 96
[2018-02-28] MEDS ORDERED: GLIMEPIRIDE 2 MG TAB PO SCH (08:00)
[2018-02-28] MEDS: GUAIFENESIN 600 MG TABCR PO SCH ×3 (09:00→21:00)
[2018-02-28] MEDS: CHOLECALCIFEROL 1000 INTER.UNIT TAB PO SCH (09:00)
[2018-02-28] MEDS: FLUTICASONE PROPIONATE NA SPR 16 GM BTL NAE SCH ×2 (09:58→21:26)
[2018-02-28] MEDS: PAROXETINE 20 MG TAB PO SCH (09:59)
[2018-02-28] MEDS: VALSARTAN 80 MG TAB PO SCH (09:59)
[2018-02-28] MEDS: CYANOCOBALAMIN 500 MCG TAB (VIT B-12) PO SCH (10:00)
[2018-02-28] MEDS: ASPIRIN 81 MG CHEW PO SCH (10:00)
[2018-02-28] MEDS: FUROSEMIDE 20 MG TAB PO SCH (10:00)
[2018-02-28] MEDS: PANTOprazole SOD 40 MG TAB PO SCH ×2 (10:50→21:27)
[2018-02-28] MEDS: INSULIN ASPART 100 UNITS/ML 3 ML PEN SQ SCH ×2 (10:53→17:51)
--- NOTE | 2018-02-28 12:06 | Progress Note ---
Internal Med Progress Note Date of Service: February 28, 2018. Provider Documentation: SUBJECTIVE: Seen and examined at bedside Still has swelling, redness of Face Also reports itching Denies chest pain, SOB, dizziness, nausea, dysphagia No other complaints OBJECTIVE: Vital Signs-as noted below Physical Exam: General Appearance:Obese, no apparent distress Head: normocephalic, Atraumatic, Facial erythema, swelling Eyes: normal inspection, EOMI, PERRL Neck: supple, Trachea midline Respiratory/Chest: Normal breath sounds, CTA Cardiovascular: S1, S2, No murmur Abdomen/GI:Soft, Non tender, Bowel sounds present Extremities/Musculoskelatal:normal inspection, no edema Neurologic/Psych:AAOX3, grossly no focal neurological deficits Skin: normal color, warm Lab data as noted below. ASSESSMENT & PLAN: Facial Cellulitis: Continue IV ceftriaxone Day # 2 Plan to transition to oral Keflex upon DC DM II: Hold Oral meds Continue ISS, Basal Insulin Monitor BGs A1C:7.0 Fibromyalgia: Continue current meds Chronic Atrial Fibrillation: Continue Sotalol Hold Coumadin today Monitor INR:3.2 HTN: Stable continue home meds monitor ADI: Continue CPAP DVT Px: Resume Continue as able INR therapeutic Code Status: Full Code Disposition: Expect to discharge home when stable Vital Signs: Date Time Temp Pulse Resp B/P (MAP) Pulse Ox O2 Delivery O2 Flow Rate FiO2 02/28/18 10:00 Room Air 02/28/18 07:32 36.6 54 16 134/69 (90) 96 Room Air 02/27/18 22:52 36.9 62 20 139/67 (91) 93 Room Air 02/27/18 19:43 Room Air 02/27/18 15:16 37.4 65 16 145/83 (103) 91 Room Air 02/27/18 14:41 37.0 77 18 163/79 94 Room Air Lab Results: Results Past 24 Hours Test 02/27/18 16:28 02/27/18 17:02 02/27/18 18:37 02/27/18 20:47 Range/Units White Blood Count 7.40 4.8-10.8 K/uL Red Blood Count 3.79 4.2-5.4 M/uL Hemoglobin 11.0 12.0-16.0 g/dL Hematocrit 33.0 37-47 % Mean Corpuscular Volume 87.1 80-100 fL Mean Corpuscular Hemoglobin 29.0 25-34 pg Mean Corpuscular Hemoglobin Concent 33.3 32-36 g/dl RDW Standard Deviation 51.4 36.4-46.3 fL RDW Coefficient of Variation 16.2 11.5-14.5 % Platelet Count 139 130-400 K/uL Mean Platelet Volume 9.3 7.4-10.4 fL Sodium Level 137 136-145 mmol/L Potassium Level 4.0 3.5-5.1 mmol/L Chloride Level 104 98-107 mmol/L Carbon Dioxide Level 24 21-32 mmol/L Anion Gap 9.0 3-11 mmol/L Blood Urea Nitrogen 13 7-18 mg/dl Creatinine 0.82 0.60-1.20 mg/dl Est Creatinine Clear Calc Drug Dose 98.9 ml/min Estimated GFR () 87.0 Estimated GFR (Non- 75.1 BUN/Creatinine Ratio 16.2 10-20 Random Glucose 132 70-99 mg/dl Calcium Level 8.7 8.5-10.1 mg/dl Magnesium Level 1.8 1.8-2.4 mg/dl Total Bilirubin 0.9 0.2-1 mg/dl Aspartate Amino Transf (AST/SGOT) 22 15-37 U/L Alanine Aminotransferase (ALT/SGPT) 27 12-78 U/L Alkaline Phosphatase 136 45-117 U/L Total Protein 7.0 6.4-8.2 gm/dl Albumin 3.6 3.4-5.0 gm/dl Globulin 3.4 2.5-4.0 gm/dl Albumin/Globulin Ratio 1.1 0.9-2 Bedside Glucose 134 148 70-90 mg/dl Prothrombin Time 32.0 9.0-12.0 SECONDS Prothromb Time International Ratio 3.1 0.9-1.1 Test 02/28/18 06:11 02/28/18 08:09 Range/Units Prothrombin Time 33.0 9.0-12.0 SECONDS Prothromb Time International Ratio 3.2 0.9-1.1 Estimated Average Glucose 154 mg/dl Hemoglobin A1c 7.0 4.5-5.6 % Bedside Glucose 143 70-90 mg/dl
[2018-02-28 14:46] VITALS: BP 144/74; PULSE 54; TEMP 36.9; O2SAT 96
[2018-02-28] MEDS ORDERED: WARFARIN SOD 5 MG TAB PO SCH (16:00)
[2018-02-28] MEDS ORDERED: LAMO25TA PO (18:41)
[2018-02-28] MEDS ORDERED: LAMO200T PO (18:41)
[2018-02-28] MEDS: CEFTRIAXONE SOD INJ 2,000 MG in DEXTROSE 5% 50ML 50 ML IV SCH (18:59)
[2018-02-28] MEDS: ATORVASTATIN 40 MG TAB PO SCH (21:27)
[2018-02-28] MEDS: SOTALOL HCL 80 MG TAB PO SCH (21:27)
[2018-02-28] MEDS: OLANZAPINE 5 MG TAB PO SCH (21:27)
[2018-02-28] MEDS: LAMOTRIGINE PO SCH ×2 (21:28)
[2018-02-28] MEDS: INSULIN GLARGINE SOLOSTAR 100 UNITS/ML 3 ML PEN SC SCH (21:34)
[2018-02-28 22:50] VITALS: BP 126/74; PULSE 72; O2SAT 96
[2018-03-01] MEDS: LEVOTHYROXINE 200 MCG TAB PO SCH (05:37)
[2018-03-01 06:48] LABS: HEMATOCRIT 31.2 % (37-47); HEMOGLOBIN 10.3 g/dL (12.0-16.0); MEAN CELL VOLUME 87.4 fL (80-100); MEAN CORPUSCULAR HEMOGLOBIN 28.9 pg (25-34); MEAN PLATELET VOLUME 9.5 fL (7.4-10.4); NUCLEATED RED BLOOD CELL ABS 0.03 K/uL (0-0); PLATELET COUNT 137 K/uL (130-400); RED CELL DISTRIBUTION WIDTH CV 16.1 % (11.5-14.5); RED CELL DISTRIBUTION WIDTH SD 51.1 fL (36.4-46.3); WHITE BLOOD COUNT 5.29 K/uL (4.8-10.8)
[2018-03-01 06:58] LABS: INR 1.9 (0.9-1.1)
[2018-03-01 07:13] VITALS: BP 117/56; PULSE 56; TEMP 36.4; O2SAT 93
[2018-03-01 07:15] LABS: CALCIUM 8.5 mg/dl (8.5-10.1); CREATININE 0.68 mg/dl (0.60-1.20); POTASSIUM 3.7 mmol/L (3.5-5.1)
[2018-03-01] MEDS: CHOLECALCIFEROL 1000 INTER.UNIT TAB PO SCH (09:00)
[2018-03-01] MEDS: GUAIFENESIN 600 MG TABCR PO SCH ×2 (09:00→21:00)
[2018-03-01] MEDS: FLUTICASONE PROPIONATE NA SPR 16 GM BTL NAE SCH ×2 (09:56→20:57)
[2018-03-01] MEDS: PANTOprazole SOD 40 MG TAB PO SCH ×2 (09:56→21:06)
[2018-03-01] MEDS: SOTALOL HCL 80 MG TAB PO SCH ×2 (09:57→21:05)
[2018-03-01] MEDS: FUROSEMIDE 20 MG TAB PO SCH (09:59)
[2018-03-01] MEDS: ASPIRIN 81 MG CHEW PO SCH (10:00)
[2018-03-01] MEDS: VALSARTAN 80 MG TAB PO SCH (10:00)
[2018-03-01] MEDS: PAROXETINE 20 MG TAB PO SCH (10:01)
[2018-03-01] MEDS: CYANOCOBALAMIN 500 MCG TAB (VIT B-12) PO SCH (10:01)
[2018-03-01] MEDS: INSULIN ASPART 100 UNITS/ML 3 ML PEN SQ SCH ×2 (10:06→17:34)
--- NOTE | 2018-03-01 11:56 | Progress Note ---
Internal Med Progress Note Date of Service: March 01, 2018. Provider Documentation: SUBJECTIVE: Seen and examined at bedside Erythema much improved Still has mild facial tenderness Itching improved Denies chest pain, SOB, dizziness, nausea, dysphagia No other complaints Had one loose BM yesterday OBJECTIVE: Vital Signs-as noted below Physical Exam: General Appearance:Obese, no apparent distress Head: normocephalic, Atraumatic, Facial erythema, swelling improving Eyes: normal inspection, EOMI, PERRL Neck: supple, Trachea midline Respiratory/Chest: Normal breath sounds, CTA Cardiovascular: S1, S2, No murmur Abdomen/GI:Soft, Non tender, Bowel sounds present Extremities/Musculoskelatal:normal inspection, no edema Neurologic/Psych:AAOX3, grossly no focal neurological deficits Skin: normal color, warm Lab data as noted below. ASSESSMENT & PLAN: Facial Cellulitis: Continue IV ceftriaxone Day # 3 Plan to transition to oral Keflex upon DC DM II: Hold Oral meds Continue ISS, Basal Insulin Monitor BGs A1C:7.0 Fibromyalgia: Continue current meds Chronic Atrial Fibrillation: Continue Sotalol Resume Coumadin today Monitor INR:3.2>> 1.9 Monitor INR HTN: Stable continue home meds monitor ADI: Continue CPAP DVT Px: On Continue Code Status: Full Code Disposition: Expect to discharge home in next 24-48 hours Vital Signs: Date Time Temp Pulse Resp B/P (MAP) Pulse Ox O2 Delivery O2 Flow Rate FiO2 03/01/18 07:13 36.4 56 18 117/56 (76) 93 CPAP 03/01/18 00:00 CPAP 02/28/18 22:50 72 18 126/74 (91) 96 CPAP 02/28/18 15:30 Room Air 02/28/18 14:46 36.9 54 18 144/74 (97) 96 Room Air Lab Results: Results Past 24 Hours Test 02/28/18 12:17 02/28/18 17:06 02/28/18 20:29 03/01/18 06:20 Range/Units Bedside Glucose 180 177 196 70-90 mg/dl White Blood Count 5.29 4.8-10.8 K/uL Red Blood Count 3.57 4.2-5.4 M/uL Hemoglobin 10.3 12.0-16.0 g/dL Hematocrit 31.2 37-47 % Mean Corpuscular Volume 87.4 80-100 fL Mean Corpuscular Hemoglobin 28.9 25-34 pg Mean Corpuscular Hemoglobin Concent 33.0 32-36 g/dl RDW Standard Deviation 51.1 36.4-46.3 fL RDW Coefficient of Variation 16.1 11.5-14.5 % Platelet Count 137 130-400 K/uL Mean Platelet Volume 9.5 7.4-10.4 fL Nucleated RBC Absolute Count (auto) 0.03 0-0 K/uL Nucleated Red Blood Cells % 0.6 % Prothrombin Time 19.7 9.0-12.0 SECONDS Prothromb Time International Ratio 1.9 0.9-1.1 Sodium Level 143 136-145 mmol/L Potassium Level 3.7 3.5-5.1 mmol/L Chloride Level 109 98-107 mmol/L Carbon Dioxide Level 26 21-32 mmol/L Anion Gap 8.0 3-11 mmol/L Blood Urea Nitrogen 14 7-18 mg/dl Creatinine 0.68 0.60-1.20 mg/dl Est Creatinine Clear Calc Drug Dose 119.3 ml/min Estimated GFR () 106.4 Estimated GFR (Non- 91.8 BUN/Creatinine Ratio 20.9 10-20 Random Glucose 122 70-99 mg/dl Calcium Level 8.5 8.5-10.1 mg/dl Magnesium Level 1.8 1.8-2.4 mg/dl Test 03/01/18 08:19 Range/Units Bedside Glucose 134 70-90 mg/dl
[2018-03-01 15:13] VITALS: BP 128/80; PULSE 60; TEMP 36.9; O2SAT 92
[2018-03-01] MEDS: CEFTRIAXONE SOD INJ 2,000 MG in DEXTROSE 5% 50ML 50 ML IV SCH (19:08)
[2018-03-01] MEDS: OLANZAPINE 5 MG TAB PO SCH (21:05)
[2018-03-01] MEDS: ATORVASTATIN 40 MG TAB PO SCH (21:06)
[2018-03-01] MEDS: LAMOTRIGINE PO SCH ×2 (21:06)
[2018-03-01] MEDS: INSULIN GLARGINE SOLOSTAR 100 UNITS/ML 3 ML PEN SC SCH (21:11)
[2018-03-01 23:16] VITALS: BP 94/61; PULSE 62; TEMP 37; O2SAT 92
[2018-03-02] MEDS ORDERED: LEVOTHYROXINE 175 MCG TAB PO SCH (06:00)
[2018-03-02 06:39] LABS: CALCIUM 8.7 mg/dl (8.5-10.1); CREATININE 0.82 mg/dl (0.60-1.20); POTASSIUM 3.8 mmol/L (3.5-5.1)
[2018-03-02 07:38] LABS: HEMATOCRIT 33.5 % (37-47); HEMOGLOBIN 10.9 g/dL (12.0-16.0); MEAN CELL VOLUME 87.7 fL (80-100); MEAN CORPUSCULAR HEMOGLOBIN 28.5 pg (25-34); MEAN CORPUSCULAR HGB CONC 32.5 g/dl (32-36); MEAN PLATELET VOLUME 9.1 fL (7.4-10.4); PLATELET COUNT 176 K/uL (130-400); RED CELL DISTRIBUTION WIDTH CV 16.3 % (11.5-14.5); RED CELL DISTRIBUTION WIDTH SD 51.2 fL (36.4-46.3); WHITE BLOOD COUNT 6.15 K/uL (4.8-10.8)
[2018-03-02 07:38] LABS: INR 1.3 (0.9-1.1)
[2018-03-02 07:46] VITALS: BP 119/64; PULSE 55; TEMP 36.4; O2SAT 95
[2018-03-02] MEDS: ASPIRIN 81 MG CHEW PO SCH (08:57)
[2018-03-02] MEDS: FLUTICASONE PROPIONATE NA SPR 16 GM BTL NAE SCH (08:57)
[2018-03-02] MEDS: PAROXETINE 20 MG TAB PO SCH (08:59)
[2018-03-02] MEDS: PANTOprazole SOD 40 MG TAB PO SCH (09:00)
[2018-03-02] MEDS: GUAIFENESIN 600 MG TABCR PO SCH (09:00)
[2018-03-02] MEDS: CYANOCOBALAMIN 500 MCG TAB (VIT B-12) PO SCH (09:00)
[2018-03-02] MEDS: CHOLECALCIFEROL 1000 INTER.UNIT TAB PO SCH (09:01)
[2018-03-02 09:02] VITALS: BP_SYST 102; BP_SYST 98; BP_DIAS 51; BP_DIAS 63; PULSE 57
[2018-03-02] MEDS: VALSARTAN 80 MG TAB PO SCH (09:07)
[2018-03-02] MEDS: SOTALOL HCL 80 MG TAB PO SCH (09:08)
[2018-03-02] MEDS: FUROSEMIDE 20 MG TAB PO SCH (09:08)
[2018-03-02] MEDS: INSULIN ASPART 100 UNITS/ML 3 ML PEN SQ SCH (09:12)
--- NOTE | 2018-03-02 10:49 | Progress Note ---
Internal Med Progress Note Date of Service: March 02, 2018. Provider Documentation: SUBJECTIVE: Seen and examined at bedside Facial tenderness, erythema improved Musculoskeletal Neck pain resolved Denies chest pain, SOB, dizziness, nausea, dysphagia No other complaints OBJECTIVE: Vital Signs-as noted below Physical Exam: General Appearance:Obese, no apparent distress Head: normocephalic, Atraumatic, Facial erythema, swelling improved Eyes: normal inspection, EOMI, PERRL Neck: supple, Trachea midline Respiratory/Chest: Normal breath sounds, CTA Cardiovascular: S1, S2, No murmur Abdomen/GI:Soft, Non tender, Bowel sounds present Extremities/Musculoskelatal:normal inspection, no edema Neurologic/Psych:AAOX3, grossly no focal neurological deficits Skin: normal color, warm Lab data as noted below. ASSESSMENT & PLAN: Facial Cellulitis: Continue IV ceftriaxone Day # 4 Plan to transition to oral Keflex upon DC DM II: Hold Oral meds Continue ISS, Basal Insulin Monitor BGs A1C:7.0 Fibromyalgia: Continue current meds Chronic Atrial Fibrillation: Continue Sotalol Resume Coumadin today Monitor INR:3.2>> 1.9 Monitor INR HTN: Stable continue home meds monitor ADI: Continue CPAP DVT Px: On Continue Code Status: Full Code Disposition: Follow up with your PCP on 03/06/18 AT 10:45 Am Get PT/INR tomorrow and follow up with Coumadin clinic for your Coumadin dosing Complete the antibiotic course as prescribed Seek immediate medical attention if your symptoms reoccur or worsen Vital Signs: Date Time Temp Pulse Resp B/P (MAP) Pulse Ox O2 Delivery O2 Flow Rate FiO2 03/02/18 09:02 57 102/63 (76) 03/02/18 07:46 36.4 55 16 119/64 (82) 95 Room Air 03/01/18 23:16 37.0 62 16 94/61 (72) 92 Room Air 03/01/18 23:15 Room Air 03/01/18 15:30 Room Air 03/01/18 15:13 36.9 60 18 128/80 (96) 92 Room Air Lab Results: Results Past 24 Hours Test 03/01/18 12:24 03/01/18 17:11 03/01/18 20:10 03/02/18 05:56 Range/Units Bedside Glucose 183 149 131 70-90 mg/dl White Blood Count 4.8-10.8 K/uL Red Blood Count 4.2-5.4 M/uL Hemoglobin 12.0-16.0 g/dL Hematocrit 37-47 % Mean Corpuscular Volume 80-100 fL Mean Corpuscular Hemoglobin 25-34 pg Mean Corpuscular Hemoglobin Concent 32-36 g/dl RDW Standard Deviation 36.4-46.3 fL RDW Coefficient of Variation 11.5-14.5 % Platelet Count 130-400 K/uL Sodium Level 140 136-145 mmol/L Potassium Level 3.8 3.5-5.1 mmol/L Chloride Level 107 98-107 mmol/L Carbon Dioxide Level 27 21-32 mmol/L Anion Gap 6.0 3-11 mmol/L Blood Urea Nitrogen 14 7-18 mg/dl Creatinine 0.82 0.60-1.20 mg/dl Est Creatinine Clear Calc Drug Dose 98.9 ml/min Estimated GFR () 87.0 Estimated GFR (Non- 75.1 BUN/Creatinine Ratio 16.9 10-20 Random Glucose 157 70-99 mg/dl Calcium Level 8.7 8.5-10.1 mg/dl Magnesium Level 1.8 1.8-2.4 mg/dl Test 03/02/18 07:09 03/02/18 07:16 Range/Units Prothrombin Time 13.8 9.0-12.0 SECONDS Prothromb Time International Ratio 1.3 0.9-1.1 White Blood Count 6.15 4.8-10.8 K/uL Red Blood Count 3.82 4.2-5.4 M/uL Hemoglobin 10.9 12.0-16.0 g/dL Hematocrit 33.5 37-47 % Mean Corpuscular Volume 87.7 80-100 fL Mean Corpuscular Hemoglobin 28.5 25-34 pg Mean Corpuscular Hemoglobin Concent 32.5 32-36 g/dl RDW Standard Deviation 51.2 36.4-46.3 fL RDW Coefficient of Variation 16.3 11.5-14.5 % Platelet Count 176 130-400 K/uL Mean Platelet Volume 9.1 7.4-10.4 fL
[2018-03-02] MEDS ORDERED: CEPH-571 PO (10:51)
--- NOTE | 2018-03-02 10:54 | Discharge Summary ---
Discharge Summary Date of Service March 02, 2018. Discharge Summary Admission Date: February 27, 2018 at 14:15 Discharge Date: March 02, 2018 Discharge Disposition: Home Principal Diagnosis: Facial Cellulitis Procedures: None Consultations: None Pending Studies/Follow-Up: Follow up with your PCP on 03/06/18 AT 10:45 Am Get PT/INR tomorrow (03/03/18) and follow up with Coumadin clinic for your Coumadin dosing Complete the antibiotic course as prescribed Seek immediate medical attention if your symptoms reoccur or worsen Medication Reconciliation New Medications: Cephalexin (Keflex) 500 Mg Cap 1 CAP PO TID for 5 Days, #15 CAP Continued Medications: Aspirin (Aspirin Chewable) 81 Mg Chew 81 MG PO DAILY Atorvastatin (Lipitor) 40 Mg Tab 40 MG PO HS Azelastine Hcl (Astelin Nasal [place]) 200 Sprays/30 Ml [place] 2 SPRAYS KENNA BID Cyanocobalamin (Vitamin B12) 1,000 Mcg Tab 1000 MCG PO DAILY Fluocinonide (Fluocinonide) 0.05 % Gel 1 DOSE TOP UD Fluticasone Propionate (Fluticasone Propionate) 120 Sprays/6000 Mcg [place] 1 SPRAY KENNA BID Furosemide (Furosemide) 20 Mg Tab 20 MG PO DAILY Guaifenesin Ext Rel (Mucinex Ext Rel) 600 Mg Tab 600 MG PO Q12 for Cough, TAB Insulin Aspart (Novolog) 100 Units/Ml Inj 11 UNITS SQ DAILY Insulin Aspart (Novolog) 100 Units/Ml Inj 14 UNITS SQ PM Insulin Glargine (Lantus) 100 Unit/Ml Inj 45 UNITS SC HS, VIAL Lamotrigine (Lamictal) 25 Mg Tab 50 MG PO HS, TAB Take with a 200mg for a total of 250mg Lamotrigine (Lamictal) 200 Mg Tab 200 MG PO HS, TAB Take with two 25mg tablets for a total of 250mg Levothyroxine Sodium (Synthroid) 200 Mcg Tab 200 MCG PO UD, TAB Friday and Friday Levothyroxine Sodium (Synthroid) 175 Mcg Tab 175 MCG PO UD, TAB Mon,Tu,Wed,Thurs,Fri Metformin Hcl (Glucophage) 1,000 Mg Tab 850 MG PO TID, TAB Olanzapine (Zyprexa) 5 Mg Tab 5 MG PO HS, TAB Pantoprazole (Pantoprazole Sodium) 40 Mg Tab 40 MG PO BID Paroxetine (Paroxetine HCl) 40 Mg Tab 50 MG PO DAILY Sotalol HCl (Sotalol HCl) 80 Mg Tab 40 MG PO BID Valsartan (Diovan) 160 Mg Tab 1 TAB PO DAILY for 30 Days, #30 TAB 5 Refills Warfarin Sod (Jantoven) 5 Mg Tab 7.5 MG PO DAILY 7.5mg Friday, Friday. 5mg Friday, Friday, , Friday, and Friday Admission Information HPI (per Admitting provider): She is a 67-year-old white female with significant past medical history as mentioned below apparently was seen in the clinic on Friday last with them left fascial redness. She was given Valtrex with the suspicion of shingles but the condition did not improve. Her redness and swelling involved the right side of the face as well and she was seen in the clinic again with a diagnosis of cellulitis/splitting erysipelas and ascending for continued treatment. She complains to have pain bilaterally face and also at the occipital area of the head. She has a fever up to 100F as an outpatient. She denies of any other symptoms. She received 2 g of ceftriaxone IM at the clinic and her redness and swelling have been improving. Physical Exam (per Admitting): General Appearance: + mild distress (From facial pain) Head: normocephalic Eyes: + pertinent finding (Minimal Left scleral redness with minimal drainage) ENT: normal ENT inspection Neck: supple, no adenopathy Respiratory/Chest: chest non-tender, lungs clear, normal breath sounds Cardiovascular: regular rate, rhythm, no edema Abdomen/GI: normal bowel sounds, non tender, soft Back: normal inspection Extremities/Musculoskelatal: normal inspection, no pedal edema (May be trace ) Neurologic/Psych: no motor/sensory deficits Skin: normal color Lymphatic: no adenopathy Hospital Course Facial Cellulitis: Continue IV ceftriaxone Day # 4 Plan to transition to oral Keflex upon DC DM II: Hold Oral meds Continue ISS, Basal Insulin Monitor BGs A1C:7.0 Fibromyalgia: Continue current meds Chronic Atrial Fibrillation: Continue Sotalol Resume Coumadin today Monitor INR:3.2>> 1.9 Monitor INR HTN: Stable continue home meds monitor ADI: Continue CPAP DVT Px: On Continue Code Status: Full Code Disposition: Follow up with your PCP on 03/06/18 AT 10:45 Am Get PT/INR tomorrow and follow up with Coumadin clinic for your Coumadin dosing Complete the antibiotic course as prescribed Seek immediate medical attention if your symptoms reoccur or worsen Total time spent on discharge = This includes examination of the patient, discharge planning, medication reconciliation, and communication with other providers. Discharge Instructions Discharge Instructions Date of Service March 02, 2018. Admission Reason for Admission: Cellulitis-Facial Discharge Discharge Diagnosis / Problem: Facial Cellulitis Discharge Goals Goal(s): Decrease discomfort, Improve function Activity Recommendations Activity Limitations: resume your previous activity Exercise/Sports Limitations: as tolerated . Instructions / Follow-Up Instructions / Follow-Up Follow up with your PCP on 03/06/18 AT 10:45 Am Get PT/INR tomorrow (03/03/18) and follow up with Coumadin clinic for your Coumadin dosing Complete the antibiotic course as prescribed Seek immediate medical attention if your symptoms reoccur or worsen Current Hospital Diet Patient's current hospital diet: Diabetes Type 2 Diet Discharge Diet Recommended Diet: Diabetes Type 2 Diet Pending Studies Studies pending at discharge: no Laboratory Results Hemoglobin A1c Test 02/28/18 06:11 Range/Units Estimated Average Glucose 154 mg/dl Hemoglobin A1c 7.0 H 4.5-5.6 % Medical Emergencies . Who to Call and When: Medical Emergencies: If at any time you feel your situation is an emergency, please call 911 immediately. . Non-Emergent Contact Non-Emergency issues call your: Primary Care Provider Call Non-Emergent contact if: you have a fever, your pain is not controlled, your pain is worsening, your pain is unusual for you, your pain is concerning you, you have any medication questions Seek immediate medical attention if your symptoms reoccur or worsen . . "Provider Documentation" section prepared by Chino Crabtree. . <Electronically signed by Chino Crabtree MD> Signed: 03/02/18 1053 Signed: The status of this report is Signed * If report status is Draft, the document has not been finalized by the responsible provider.
[2018-03-02 15:40] VITALS: BP 138/64; PULSE 56; TEMP 37.1; O2SAT 98
[2018-03-02] MEDS ORDERED: WARFARIN SOD 7.5 MG TAB PO SCH (16:00)
[2018-03-02 16:37] VITALS: BP 138/64; PULSE 56; TEMP 37.1; O2SAT 98
[2018-03-02] MEDS: CEFTRIAXONE SOD INJ 2,000 MG in DEXTROSE 5% 50ML 50 ML IV SCH (17:06)
== END 2018-03-02 17:50 | disposition home or self-care (01) ==
LOC: C.MSN 14:15
PROVIDERS: ADMIT Internal Medicine; ATTEND Internal Medicine
DX: L03.211 Cellulitis of face (principal); I48.91 Unspecified atrial fibrillation; E11.9 Type 2 diabetes mellitus without complications; I10 Essential (primary) hypertension; M79.7 Fibromyalgia; Z88.6 Allergy status to analgesic agent; Z88.8 Allergy status to other drugs, medicaments and biological substances; Z79.82 Long term (current) use of aspirin; Z79.4 Long term (current) use of insulin